=== PATIENT | male | born 1985 | race Caucasian/White ===

== ENCOUNTER 2021-03-02 14:00 | Emergency (ER) | payer OTHER ==
[2021-03-03 01:17] LABS: SARS-CoV-2 PCR by NAA DETECTED (NotDetected)
== END 2021-03-02 16:13 | disposition home or self-care (01) ==
LOC: ERS 14:00
DX: U07.1 COVID-19 (principal)
CPT/HCPCS: 99284; U0003; U0005

== ENCOUNTER 2022-08-09 13:54 | Emergency (ER) | payer OTHER | END 2022-08-09 16:47 | disposition left against medical advice (07) | LOC: ERS 13:54 | DX: Z53.21 Procedure and treatment not carried out due to patient leaving prior to being seen by health care provider (principal) ==